=== PATIENT | male | born 1945 | race Caucasian/White ===

== ENCOUNTER 2017-08-29 07:19 | Outpatient (CLI) | payer OTHER | END 2017-08-29 07:23 | disposition home or self-care (01) | LOC: NUCLEAR 07:19 | DX: I11.9 Hypertensive heart disease without heart failure (principal); I25.10 Atherosclerotic heart disease of native coronary artery without angina pectoris | CPT/HCPCS: 78452; 93017; A9500; J0153 ==

== ENCOUNTER 2020-07-07 07:27 | Outpatient (CLI) | payer OTHER | END 2020-07-07 07:32 | disposition home or self-care (01) | LOC: NUCLEAR 07:27 | PROVIDERS: ATTEND Internal Medicine Cardiovascular Disease | DX: I25.10 Atherosclerotic heart disease of native coronary artery without angina pectoris (principal); I11.9 Hypertensive heart disease without heart failure | CPT/HCPCS: 78452; 93017; A9500; J0153 ==